=== PATIENT | male | born 1950 | race Caucasian/White ===

== ENCOUNTER 2017-05-19 21:19 | Emergency (ER) | payer OTHER, MEDICARE ==
[2017-05-19 21:44] VITALS: BP 140/71; PULSE 96; RESP 20; TEMP 98.9; O2SAT 97
--- NOTE | 2017-05-19 21:50 | PD ---
HPI Chief Complaint: Psychiatric Symptoms Time Seen by Provider: 21:49 Travel History International Travel<30 days: No Contact w/Intl Traveler<30days: No Traveled to known affect area: No History of Present Illness HPI 66-year-old male came to the emergency room with history of wandering out of his [facility] after he heard a bad news regarding 1 of his family members. Patient was picked up by the PD and brought here as a Garcia act. He was quite combative initially and needed to be restrained by the nursing staff. Vital signs are stable. Patient is not a reliable historian at this point. [facility] Past Medical History Narrative Medical List of his past medical, surgical, social and family history reviewed from the nursing note. Allergies-Medications (Allergen,Severity, Reaction): Coded Allergies: No Known Allergies (Unverified , 05/19/17) Comments No known drug allergies. Narrative Medication Waiting for the nurse to do the medication reconciliation. Review of Systems ROS Limitations: Uncooperative, Combative Except as stated in HPI: all other systems reviewed are Neg Physical Exam Narrative GENERAL: Awake, alert, refusing to talk SKIN: Focused skin assessment warm/dry. HEAD: Atraumatic. Normocephalic. EYES: Pupils equal and round. No scleral icterus. No injection or drainage. ENT: No nasal bleeding or discharge. Mucous membranes pink and moist. NECK: Trachea midline. No JVD. CARDIOVASCULAR: Regular rate and rhythm. No murmur appreciated. RESPIRATORY: No accessory muscle use. Clear to auscultation. Breath sounds equal bilaterally. GASTROINTESTINAL: Abdomen soft, non-tender, nondistended. Hepatic and splenic margins not palpable. MUSCULOSKELETAL: No obvious deformities. No clubbing. No cyanosis. No edema. NEUROLOGICAL: Awake and alert. No obvious cranial nerve deficits. Motor grossly within normal limits. Normal speech. PSYCHIATRIC: Appropriate mood and affect; insight and judgment normal. Data Data Last Documented VS Vital Signs Date Time Temp Pulse Resp B/P (MAP) Pulse Ox O2 Delivery O2 Flow Rate FiO2 05/19/17 21:44 98.9 96 20 140/71 (94) 97 Orders Orders Complete Blood Count With Diff (05/19/17 21:55) Comprehensive Metabolic Panel (05/19/17 21:55) Thyroid Stimulating Hormone (05/19/17 21:55) Psych Screen (05/19/17 21:55) Drug Screen, Random Urine (05/19/17 21:55) Haloperidol Inj (Haldol Inj) (05/19/17 22:15) Lorazepam Inj (Ativan Inj) (05/19/17 22:15) Potassium Chloride (Kcl) (05/20/17 00:15) Labs Laboratory Tests Test 05/19/17 23:05 White Blood Count 14.2 TH/MM3 Red Blood Count 4.23 MIL/MM3 Hemoglobin 13.8 GM/DL Hematocrit 38.9 % Mean Corpuscular Volume 92.1 FL Mean Corpuscular Hemoglobin 32.7 PG Mean Corpuscular Hemoglobin Concent 35.5 % Red Cell Distribution Width 14.8 % Platelet Count 287 TH/MM3 Mean Platelet Volume 7.8 FL Neutrophils (%) (Auto) 63.2 % Lymphocytes (%) (Auto) 27.0 % Monocytes (%) (Auto) 6.4 % Eosinophils (%) (Auto) 3.1 % Basophils (%) (Auto) 0.3 % Neutrophils # (Auto) 9.0 TH/MM3 Lymphocytes # (Auto) 3.8 TH/MM3 Monocytes # (Auto) 0.9 TH/MM3 Eosinophils # (Auto) 0.4 TH/MM3 Basophils # (Auto) 0.0 TH/MM3 CBC Comment DIFF FINAL Differential Comment Blood Urea Nitrogen 14 MG/DL Creatinine 1.01 MG/DL Random Glucose 93 MG/DL Total Protein 7.7 GM/DL Albumin 3.6 GM/DL Calcium Level 8.6 MG/DL Alkaline Phosphatase 111 U/L Aspartate Amino Transf (AST/SGOT) 56 U/L Alanine Aminotransferase (ALT/SGPT) 57 U/L Total Bilirubin 0.7 MG/DL Sodium Level 139 MEQ/L Potassium Level 3.1 MEQ/L Chloride Level 104 MEQ/L Carbon Dioxide Level 21.1 MEQ/L Anion Gap 14 MEQ/L Estimat Glomerular Filtration Rate 74 ML/MIN Thyroid Stimulating Hormone 3rd Gen 3.280 uIU/ML [facility] Medical Decision Making Medical Screen Exam Complete: Yes Emergency Medical Condition: Yes Medical Record Reviewed: Yes Differential Diagnosis Psychosis, agitation Narrative Course 12:42 AM patient was chemically restrained with Haldol and Ativan. Blood test results are back and there is some leukocytosis which I think is stress induced from his combativeness. Potassium is low and I have ordered for p.o. replacement. Otherwise him medically clearing him. Patient will require psych screen Procedures EKG Prior to Arrival: Мария Pacheco MD May 19, 2017 21:50
[2017-05-19] MEDS ORDERED: LORazepam 2 MG/ML VIAL IM ONE (22:15)
[2017-05-19] MEDS ORDERED: HALOPERIDOL LACTATE 5 MG/ML AMP IM ONE (22:15)
[2017-05-19 23:34] LABS: BASOPHIL % 0.3 % (0.0-2.0); EOSINOPHIL # 0.4 TH/MM3 (0-0.4); EOSINOPHIL % 3.1 % (0.0-4.0); HEMATOCRIT 38.9 % (39.0-51.0); HEMOGLOBIN 13.8 GM/DL (13.0-17.0); LYMPHOCYTE # 3.8 TH/MM3 (1.0-4.8); MEAN CELL VOLUME 92.1 FL (80.0-100.0); MEAN CORPUSCULAR HEMOGLOBIN 32.7 PG (27.0-34.0); MEAN CORPUSCULAR HGB CONC 35.5 % (32.0-36.0); MEAN PLATELET VOLUME 7.8 FL (7.0-11.0); MONO % 6.4 % (0.0-8.0); MONOCYTE # 0.9 TH/MM3 (0-0.9); NEUT % 63.2 % (16.0-70.0); PLATELET COUNT 287 TH/MM3 (150-450); RED BLOOD COUNT 4.23 MIL/MM3 (4.50-5.90); RED CELL DISTRIBUTION WIDTH 14.8 % (11.6-17.2); WHITE BLOOD COUNT 14.2 TH/MM3 (4.0-11.0)
[2017-05-20 00:02] LABS: ALBUMIN 3.6 GM/DL (3.4-5.0); ALT (GPT) 57 U/L (12-78); AST (GOT) 56 U/L (15-37); BICARBONATE 21.1 MEQ/L (21.0-32.0); BLOOD UREA NITROGEN 14 MG/DL (7-18); CALCIUM 8.6 MG/DL (8.5-10.1); CHLORIDE 104 MEQ/L (98-107); CREATININE 1.01 MG/DL (0.60-1.30); GLOMERULAR FILTRATION RATE 74 ML/MIN (>89); GLUCOSE,RANDOM 93 MG/DL (74-106); SODIUM (NA) 139 MEQ/L (136-145)
[2017-05-20 00:12] LABS: ALKALINE PHOSPHATASE 111 U/L (45-117); TOTAL BILIRUBIN ADULT 0.7 MG/DL (0.2-1.0); TOTAL PROTEIN 7.7 GM/DL (6.4-8.2)
[2017-05-20] MEDS ORDERED: POTASSIUM CHLORIDE 20 MEQ CONTROLLED RELEASE TAB PO ONE (00:15)
[2017-05-20 07:00] VITALS: BP 128/68; PULSE 84; RESP 16; TEMP 98.2; O2SAT 98
--- NOTE | 2017-05-20 10:54 | PD ---
History of Present Illness Chief Complaint: Psychiatric Symptoms Time Seen by Provider: 10:30 Travel History International Travel<30 Days: No Contact w/Intl Traveler<30days: No Known affected area: No Legal Status Legal Status: Garcia Act Garcia Act Signed By: Irene Aden History of Present Illness: History of Present Illness HPI 66-year-old ,, male, resident of [facility], with reported history of PTSD who presents to the emergency department under a Garcia act initiated by law enforcement after they were called by the [facility] where the patient resides when the patient wandered out of his [facility]. When the police picked him up he stated that he was feeling depressed and that he was no longer wanting to live at the facility I will run away as soon as he was dropped off. The report also alleges that the patient had been agitated and was cursing at the staff at the assisted living facility which is uncommon behavior for the patient. It is reported that he had some news from his sister the previous day informing him that she was at the [facility] with a diagnosis of breast cancer. Upon arrival to the ED the patient was agitated and required restraints. There were no other further behavioral concerns reported. Electronic medical record is reviewed. No previous contact with [facility] psychiatry. Current toxicology is negative for any substances. Patient is seen in main ED. Case discussed with nurses. Patient is alert, oriented, calm and cooperative. His speech is clear, logical and goal- directed. Does not appear to be internally preoccupied. Denies any hallucinations, I can elicit no delusions and no paranoia. He denies suicidal or homicidal ideation, intent or plan. He states that he was upset after he found out that his sister was diagnosed with breast cancer and that he went to use the phone at the grocery store as well as needing some time to be by myself ". He states I didn't mean to be agitated but I couldn't understand why the police brought me here in handcuffs. The patient at this time is denying any symptom of any depression or any anxiety. He reports that he sleeps well and he has an adequate appetite. He also wants to be discharge back to his [facility]. Telephone call to [facility] at [phone], spoke with Maria Teresa. She has no concerns if he is discharged from [facility] and is welcomed to return the facility. She is concerned that the patient has been drinking alcohol lately and that he may have been wanting to go to the store to get some alcohol. PFSH Past Medical History Medical History: Unable to Obtain Past Surgical History Surgical History: Unable to Obtain Psychiatric History Psychiatric History Hx Psychiatric Treatment: PTSD. DENIES PAST INPATIENT PSYCHIATRIC TREATMENT. Does receive outpatient care at the [facility]. History of Inpatient Treatment: No Guns or firearms in home: No Social History Divorce, retired male. Has 1 son but has no contact with him. He lives at an [facility]. He is a of the [place] [employer]. Hx Alcohol Use: Yes Hx Tobacco Use: No Hx Substance Use: No Hx of Substance Use Treatment: No Allergies-Medications (Allergen,Severity, Reaction): Coded Allergies: No Known Allergies (Unverified , 05/19/17) Reported Meds & Prescriptions Reported Meds & Active Scripts Active Active Prescriptions or Reported Medications Unobtainable Review of Systems Psychiatric: DENIES: Anxiety, Confusion, Mood changes, Depression, Hallucinations, Agitation, Suicidal Ideation, Homicidal Ideation, Delusions Except as stated in HPI: all other systems reviewed are Neg Mental Status Examination Appearance: Appropriate Consciousness: Alert Orientation: x4 Speech: Unremarkable Language: Adequate Fund of Knowledge: Adequate Attention and Concentration: Adequate Memory: Unremarkable Mood: Anxious Affect: Appropriate Thought Process & Associations: Intact, Logical, Goal directed Thought Content: Appropriate Hallucination Type: None Delusion Type: None Suicidal Ideation: No Suicidal Plan: No Suicidal Intention: No Homicidal Ideation: No Homicidal Plan: No Homicidal Intention: No Insight: Fair Judgment: Impulsive MDM Medical Decision Making Medical Record Reviewed: Yes Assessment/Plan 66-year-old ,, male, resident of [facility], with reported history of PTSD who presents to the emergency department under a Garcia act initiated by law enforcement after they were called by the [facility] where the patient resides when the patient wandered out of his [facility]. When the police picked him up he stated that he was feeling depressed and that he was no longer wanting to live at the facility I will run away as soon as he was dropped off. The report also alleges that the patient had been agitated and was cursing at the staff at the assisted living facility which is uncommon behavior for the patient. It is reported that he had some news from his sister the previous day informing him that she was at the [facility] with a diagnosis of breast cancer. Upon arrival to the ED the patient was agitated and required restraints. The patient has maintained his behavioral control. There is no psychosis, no kenisha , no suicidal or homicidal ideation, intent or plan. The patient is requesting to be discharged to his [facility]. The [facility] has been contacted and they have no concerns if he were to be discharge. The patient has outpatient treatment [facility] the [facility]. He will follow up with the [facility]. Support is provided. The BA is lifted as he presents no criteria to remain under the Garcia act. Psychiatrically clear for discharge to [facility]. Orders Orders Complete Blood Count With Diff (05/19/17 21:55) Comprehensive Metabolic Panel (05/19/17 21:55) Thyroid Stimulating Hormone (05/19/17 21:55) Psych Screen (05/19/17 21:55) Drug Screen, Random Urine (05/19/17 21:55) Haloperidol Inj (Haldol Inj) (05/19/17 22:15) Lorazepam Inj (Ativan Inj) (05/19/17 22:15) Potassium Chloride (Kcl) (05/20/17 00:15) Diet Regular Basic (05/20/17 Breakfast) Results Vital Signs Date Time Temp Pulse Resp B/P (MAP) Pulse Ox O2 Delivery O2 Flow Rate FiO2 05/20/17 07:00 98.2 84 16 128/68 (88) 98 Room Air 05/19/17 21:44 98.9 96 20 140/71 (94) 97 Laboratory Tests Test 05/19/17 23:05 05/20/17 00:50 White Blood Count 14.2 Red Blood Count 4.23 Hemoglobin 13.8 Hematocrit 38.9 Mean Corpuscular Volume 92.1 Mean Corpuscular Hemoglobin 32.7 Mean Corpuscular Hemoglobin Concent 35.5 Red Cell Distribution Width 14.8 Platelet Count 287 Mean Platelet Volume 7.8 Neutrophils (%) (Auto) 63.2 Lymphocytes (%) (Auto) 27.0 Monocytes (%) (Auto) 6.4 Eosinophils (%) (Auto) 3.1 Basophils (%) (Auto) 0.3 Neutrophils # (Auto) 9.0 Lymphocytes # (Auto) 3.8 Monocytes # (Auto) 0.9 Eosinophils # (Auto) 0.4 Basophils # (Auto) 0.0 CBC Comment DIFF FINAL Differential Comment Blood Urea Nitrogen 14 Creatinine 1.01 Random Glucose 93 Total Protein 7.7 Albumin 3.6 Calcium Level 8.6 Alkaline Phosphatase 111 Aspartate Amino Transf (AST/SGOT) 56 Alanine Aminotransferase (ALT/SGPT) 57 Total Bilirubin 0.7 Sodium Level 139 Potassium Level 3.1 Chloride Level 104 Carbon Dioxide Level 21.1 Anion Gap 14 Estimat Glomerular Filtration Rate 74 Thyroid Stimulating Hormone 3rd Gen 3.280 Urine Opiates Screen NEG Urine Barbiturates Screen NEG Urine Amphetamines Screen NEG Urine Benzodiazepines Screen NEG Urine Cocaine Screen NEG Urine Cannabinoids Screen NEG Diagnosis Primary Impression: Adjustment disorder Additional Impression: PTSD (post-traumatic stress disorder) Psychiatrically Cleared: Yes Med/ Other Pt Specific Info: No Change to Meds Prescriptions Unable to Obtain Active Prescriptions or Reported Meds Disposition: 01 DISCHARGE HOME Condition: Stable Problem Qualifiers Alba Carolina May 20, 2017 10:54
--- NOTE | 2017-05-20 11:00 | PD ---
Physical Exam Date Seen by Provider: May 20, 2017 Time Seen by Provider: 10:59 Narrative 66-year-old male previous to Garcia acted and medically cleared after arriving from his local assisted living facility, has been seen and evaluated by psychiatric staff. Patient is deemed psychiatrically stable for return to the assisted living facility. Patient is known to have money in his wallet for taxi fair. Follow-up will be based on psychiatric note. Data Data Last Documented VS Vital Signs Date Time Temp Pulse Resp B/P (MAP) Pulse Ox O2 Delivery O2 Flow Rate FiO2 05/20/17 07:00 98.2 84 16 128/68 (88) 98 Room Air Orders Orders Complete Blood Count With Diff (05/19/17 21:55) Comprehensive Metabolic Panel (05/19/17 21:55) Thyroid Stimulating Hormone (05/19/17 21:55) Psych Screen (05/19/17 21:55) Drug Screen, Random Urine (05/19/17 21:55) Haloperidol Inj (Haldol Inj) (05/19/17 22:15) Lorazepam Inj (Ativan Inj) (05/19/17 22:15) Potassium Chloride (Kcl) (05/20/17 00:15) Diet Regular Basic (05/20/17 Breakfast) Labs Laboratory Tests Test 05/19/17 23:05 05/20/17 00:50 White Blood Count 14.2 TH/MM3 Red Blood Count 4.23 MIL/MM3 Hemoglobin 13.8 GM/DL Hematocrit 38.9 % Mean Corpuscular Volume 92.1 FL Mean Corpuscular Hemoglobin 32.7 PG Mean Corpuscular Hemoglobin Concent 35.5 % Red Cell Distribution Width 14.8 % Platelet Count 287 TH/MM3 Mean Platelet Volume 7.8 FL Neutrophils (%) (Auto) 63.2 % Lymphocytes (%) (Auto) 27.0 % Monocytes (%) (Auto) 6.4 % Eosinophils (%) (Auto) 3.1 % Basophils (%) (Auto) 0.3 % Neutrophils # (Auto) 9.0 TH/MM3 Lymphocytes # (Auto) 3.8 TH/MM3 Monocytes # (Auto) 0.9 TH/MM3 Eosinophils # (Auto) 0.4 TH/MM3 Basophils # (Auto) 0.0 TH/MM3 CBC Comment DIFF FINAL Differential Comment Blood Urea Nitrogen 14 MG/DL Creatinine 1.01 MG/DL Random Glucose 93 MG/DL Total Protein 7.7 GM/DL Albumin 3.6 GM/DL Calcium Level 8.6 MG/DL Alkaline Phosphatase 111 U/L Aspartate Amino Transf (AST/SGOT) 56 U/L Alanine Aminotransferase (ALT/SGPT) 57 U/L Total Bilirubin 0.7 MG/DL Sodium Level 139 MEQ/L Potassium Level 3.1 MEQ/L Chloride Level 104 MEQ/L Carbon Dioxide Level 21.1 MEQ/L Anion Gap 14 MEQ/L Estimat Glomerular Filtration Rate 74 ML/MIN Thyroid Stimulating Hormone 3rd Gen 3.280 uIU/ML Urine Opiates Screen NEG Urine Barbiturates Screen NEG Urine Amphetamines Screen NEG Urine Benzodiazepines Screen NEG Urine Cocaine Screen NEG Urine Cannabinoids Screen NEG MDM Medical Record Reviewed: Yes Supervised Visit with VARGHESE: Yes Narrative Course 66-year-old male previous to Garcia acted and medically cleared after arriving from his local assisted living facility, has been seen and evaluated by psychiatric staff. Patient is deemed psychiatrically stable for return to the assisted living facility. Patient is known to have money in his wallet for taxi fair. Follow-up will be based on psychiatric note. Diagnosis Primary Impression: Adjustment disorder Qualified Codes: F43.20 - Adjustment disorder, unspecified Additional Impression: PTSD (post-traumatic stress disorder) Patient Instructions: General Instructions Med/Other Pt SpecificInfo: No Change to Meds Scripts Unable to Obtain Active Prescriptions or Reported Meds Disposition: 01 DISCHARGE HOME Condition: Stable William Patel May 20, 2017 11:00
== END 2017-05-20 11:45 | disposition home or self-care (01) ==
LOC: NEPD 21:19 → NEPB 05-20 11:45
DX: F43.20 Adjustment disorder, unspecified (principal); F43.10 Post-traumatic stress disorder, unspecified
CPT/HCPCS: 80053; 80307; 84443; 85025; 96372; 99285; J1630; J2060